=== PATIENT | male | born 1995 | race Caucasian/White ===

== ENCOUNTER 2020-09-13 12:10 | Emergency (ER) | payer OTHER ==
[~2020-09-13] VITALS: Ht 182.9 cm; Wt 65.3 kg
--- NOTE | 2020-09-13 12:30 | NUR ---
pt rec'd to er c/o pain left hand hit a table lac to niddle and ring finger xray taken [employer] 5.325 one tab
[2020-09-13] MEDS ORDERED: HYDROCODONE/APAP 5/325MG TABLET PO ONE (13:00)
[2020-09-13] MEDS ORDERED: HYDROCODONE/APAP 5/325MG TABLET ONE (13:13)
[2020-09-13] MEDS ORDERED: NAPR-1009 PO (13:22)
--- NOTE | 2020-09-13 14:02 | NUR ---
PT. VERBALIZED UNDERSTANDING OF AFTERCARE INSTRUCTIONS.
[2020-09-13 14:03] VITALS: BP 125/75
== END 2020-09-13 14:04 | disposition home or self-care (01) ==
LOC: ER 12:16
DX: S63.8X2A Sprain of other part of left wrist and hand, initial encounter (principal); W22.8XXA Striking against or struck by other objects, initial encounter; Y93.89 Activity, other specified; Y92.89 Other specified places as the place of occurrence of the external cause; Y99.8 Other external cause status
CPT/HCPCS: 73130-TC